=== PATIENT | female | born 1950 | race Caucasian/White ===

== ENCOUNTER 2018-03-22 11:39 | Outpatient (CLI) | payer MEDICARE, SELFPAY ==
[2018-03-22 13:58] LABS: ALT 30 U/L (12-78); AST 24 U/L (15-37); Albumin 3.7 g/dL (3.4-5.0); Alkaline Phosphatase 40 U/L (46-116); Anion Gap 7.9 mmol/L (3-11); BUN 12 mg/dL (7-18); Bilirubin, Total 0.5 mg/dL (0.2-1.0); CO2 29.1 mmol/L (21.0-32.0); CREATININE 0.79 mg/dL (0.55-1.02); Calcium 9.3 mg/dL (8.5-10.1); Chloride 104 mmol/L (98-107); Cholesterol 222 mg/dL (50-200); Glucose 89 mg/dL (70-100); HDL Cholesterol 52 mg/dL (40-60); LDL CHOLESTEROL 155 mg/dL (<100); Potassium 4.7 mmol/L (3.5-5.1); Sodium 141 mmol/L (136-145); Total Protein 6.9 g/dL (6.4-8.2); Triglyceride 85 mg/dL (30-150)
== END 2018-03-22 11:59 ==
PROVIDERS: PCP Family Medicine; Visit Provider Family Medicine
DX: I10 Essential (primary) hypertension (principal)
CPT/HCPCS: 36415; 80053; 80061; 83721

== ENCOUNTER 2019-03-29 01:17 | Outpatient (CLI) | payer MEDICARE, SELFPAY ==
[2019-03-29 08:25] LABS: ALT 24 U/L (14-59); AST 18 U/L (15-37); Albumin 3.6 g/dL (3.4-5.0); Alkaline Phosphatase 40 U/L (46-116); Anion Gap 8.6 mmol/L (3-11); BUN 13 mg/dL (7-18); Bilirubin, Total 0.5 mg/dL (0.2-1.0); CO2 29.4 mmol/L (21.0-32.0); CREATININE 0.81 mg/dL (0.55-1.02); Calcium 9.1 mg/dL (8.5-10.1); Calculated LDL 155 mg/dL; Chloride 105 mmol/L (98-107); Cholesterol 216 mg/dL (<200); Glucose 90 mg/dL (74-106); HDL Cholesterol 46 mg/dL (40-60); Potassium 4.5 mmol/L (3.5-5.1); Sodium 143 mmol/L (136-145); Total Protein 6.8 g/dL (6.4-8.2); Triglyceride 77 mg/dL (<150)
== END 2019-03-29 01:37 ==
PROVIDERS: PCP Family Medicine; Visit Provider Family Medicine
DX: I10 Essential (primary) hypertension (principal)
CPT/HCPCS: 36415; 80053; 80061

== ENCOUNTER 2022-06-19 13:26 | Outpatient (CLI) | payer MEDICARE, SELFPAY ==
[2022-06-19 14:09] LABS: ALT 22 U/L (14-59); AST 16 U/L (15-37); Albumin 3.7 g/dL (3.4-5.0); Alkaline Phosphatase 39 U/L (46-116); BUN 13 mg/dL (7-18); Bilirubin, Total 0.3 mg/dL (0.2-1.0); CREATININE 0.8 mg/dL (0.55-1.02); Calcium 9.3 mg/dL (8.5-10.1); Chloride 102 mmol/L (98-107); Estimated GFR 78.24 (mL/min/1.73m2); Glucose 92 mg/dL (74-106); Sodium 140 mmol/L (136-145); Total Protein 7.2 g/dL (6.4-8.2)
== END 2022-06-19 13:27 | disposition home or self-care (01) ==
LOC: LBO 13:28
PROVIDERS: PCP Family Medicine; Visit Provider Family Medicine
DX: I10 Essential (primary) hypertension (principal)
CPT/HCPCS: 36415; 80053

== ENCOUNTER 2023-07-29 10:24 | Outpatient (CLI) | payer MEDICARE, SELFPAY ==
[2023-07-29 12:29] LABS: ALT 23 U/L (14-59); AST 20 U/L (15-37); Albumin 3.9 g/dL (3.4-5.0); Alkaline Phosphatase 36 U/L (46-116); Anion Gap 10.5 mmol/L (3-11); BUN 13 mg/dL (7-18); Bilirubin, Total 0.6 mg/dL (0.2-1.0); CO2 27.5 mmol/L (21.0-32.0); CREATININE 0.8 mg/dL (0.55-1.02); Calcium 9.8 mg/dL (8.5-10.1); Chloride 105 mmol/L (98-107); Estimated GFR 77.75 (mL/min/1.73m2); Glucose 106 mg/dL (74-106); Sodium 143 mmol/L (136-145); Total Protein 7.4 g/dL (6.4-8.2)
== END 2023-07-29 10:25 | disposition home or self-care (01) ==
LOC: LOS 10:25
PROVIDERS: PCP Family Medicine; Referring Provider Family Medicine; Visit Provider Family Medicine
DX: I10 Essential (primary) hypertension (principal)
CPT/HCPCS: 36415; 80053

== ENCOUNTER 2023-12-22 02:17 | Outpatient (CLI) | payer MEDICARE, SELFPAY ==
--- NOTE | 2023-12-22 06:45 | DI.US_ITS ---
Exam(s) US PELVIS TRANSVAGINAL EXAM: US PELVIS TRANSVAGINAL CLINICAL HISTORY: postmenopausal BLEEDING,N95.0 TECHNIQUE: Transabdominal and transvaginal imaging was performed using standard protocol. COMPARISON: No exams were available for comparison FINDINGS: UTERUS: Anteverted. 5.6 x 1.9 x 3.0 cm Endometrium: Single wall thickness is 1 millimeter. No focal abnormality or heterogeneities. Small amount of fluid within endometrial cavity. Myometrium: Unremarkable. Cervix: Unremarkable. OVARIES: Right: Cyst or mass: None. Left: Cyst or mass: None. DOPPLER: Color: Symmetric and uniform flow to both ovaries. No hyperemia. CUL-DE-SAC: Free fluid: None. IMPRESSION: Small amount of fluid within endometrial cavity. No endometrial thickening or focal endometrial abno rmality is identified. DATA REPOSITORY:
== END 2023-12-22 02:37 ==
LOC: DI 02:17
PROVIDERS: PCP Family Medicine; Visit Provider Obstetrics & Gynecology Gynecology
DX: N95.0 Postmenopausal bleeding (principal)
CPT/HCPCS: 76830; 76856

== ENCOUNTER 2023-12-22 12:15 | Outpatient (CLI) | payer MEDICARE, SELFPAY ==
--- NOTE | 2023-12-22 11:00 | DI.MAMMO_ITS ---
Exam(s) MAMMO SCREENING EXAM: MAMMO SCREENING CLINICAL HISTORY: Z12.39 screening TECHNIQUE: Mammograms were interpreted according to the usual protocol including computer analysis w [employer] CAD system, tomosynthesis and C-view imaging. COMPARISON: 2013 through 2020 FINDINGS: The breasts are composed of scattered fibroglandular densities, Breast Density category B. No suspicious masses or suspicious microcalcifications are seen. No skin thickening or abnormal axillary lymph nodes are seen. There has been no significant change from prior exams. IMPRESSION: BI-RADS Category 1, Negative mammogram Yearly screening mammography is recommended. Breast Density - Category B, scattered fibroglandular densities. A negative radiographic report should not delay biopsy if a dominant or clinically suspicious mass is present. Up to ten percent of cancers are not identified on mammography. A negative report may reinforce clinical impression. Adenosis and dense breasts may obscure an underlying neoplasm. False positive reports average 6 to 10%. Patient will receive a letter notifying them of these results.
== END 2023-12-22 12:35 ==
LOC: DI 12:15
PROVIDERS: PCP Family Medicine; Visit Provider Family Medicine
DX: Z12.31 Encounter for screening mammogram for malignant neoplasm of breast (principal); N95.0 Postmenopausal bleeding
CPT/HCPCS: 77063; 77067

== ENCOUNTER 2024-07-06 01:47 | Outpatient (CLI) | payer MEDICARE, SELFPAY ==
--- NOTE | 2024-07-06 10:30 | DI.RAD_ITS ---
Exam(s) XR LUMBAR SPINE COMPLETE EXAM: XR LUMBAR SPINE COMPLETE CLINICAL HISTORY: low back pain with radiation down leg,leg pain,m54.50,m79.606. TECHNIQUE: 2D digital imaging was performed. COMPARISON: No exams were available for comparison FINDINGS: Five views There is lumbar scoliosis convex right. There is no evidence of compression fracture or listhesis. Some disc space narrowing is noted at L4- 5 none level. There is mild facet joint degenerative changes at the lower 2 levels. Other facets ap pear unremarkable. Sacroiliac joints appear unremarkable. Bone density is age-appropriate. There a re no osseous lesions evident. IMPRESSION: Scoliosis and degenerative disc disease. There is disc space narrowing at L4-5 level. If clinically indicated follow-up MRI can be performed. DATA REPOSITORY: RADIATION DOSE DELIVERED:
== END 2024-07-06 02:07 ==
LOC: DI 01:47
PROVIDERS: PCP Family Medicine; Visit Provider Family Medicine
DX: M41.26 Other idiopathic scoliosis, lumbar region (principal); M51.362 Other intervertebral disc degeneration, lumbar region with discogenic back pain and lower extremity pain
CPT/HCPCS: 72110

== ENCOUNTER 2024-08-18 00:33 | Outpatient (CLI) | payer MEDICARE, SELFPAY ==
--- NOTE | 2024-08-18 06:45 | DI.MRI_ITS ---
Exam(s) MR LUMBAR SPINE WO EXAM: MR LUMBAR SPINE WO CLINICAL HISTORY: LBP and r leg pain despite time, meds, conservative rx,m54.50,m79.604. TECHNIQUE: Multiplanar multisequence MRI of the Lumbar spine was performed. COMPARISON: CR XR LUMBAR SPINE COMPLETE from 07/06/2024 FINDINGS: Conus medullaris is at normal level. There is no evidence of conus mass nor subjacent clumping of in trathecal nerve roots to suggest arachnoiditis. The distal thecal sac appears unremarkable.Are, rodríguez sivakumar, 2 adjacent Tarlov intra sacral cysts associated with the lower most aspect of the thecal sac at the S2 level. These iydj-tl-wbyi Tarlov intra sacral cysts both measure 9 cm wide by 8 cm AP by 1.3 cm craniocaudal. Bones:There are no fractures nor ominous osseous lesions in the lumbar vertebral bodies and visualize d sacrum. There is a prominent benign intraosseous hemangioma in the central and left side of the T1 1 vertebral body. There is a moderate rotoscoliosis convex right, seen on recent plain films With respect to the individual disc space levels... T12-L1: Unremarkable L1-2: Normal disc height and signal. No disc herniation nor central canal stenosis.No foraminal steno sis L2-3: Normal disc height. No disc herniation nor central canal stenosis.No foraminal stenosis.No face t arthropathy. L3-4: There is mild disc space narrowing at this level. Posteriorly there is central-right paracentr al annular bulging which mildly indents the anterior right side of the thecal sac at this level. Lizette tral canal dimensions are lower normal. There is no foraminal stenosis on either side at this level. Minimal if any significant facet arthropathy noted. L4-5: There is asymmetric narrowing of the right-side of the disc space at this level. There is a si gnificant central disc herniation at this level which extends posteriorly 7 mm and is 12 mm wide. Th is subligamentous disc herniation significantly indents the thecal sac resulting in an element of lizette tral canal stenosis. The disc herniation does not extend appreciably into the exiting neural foramin a and there is no significant foraminal stenosis on either side at this level. The facet joints appe ar unremarkable. L5-S1: Normal disc height and signal. There is a smaller central subligamentous disc protrusion at t his level which extends posteriorly 3 mm, is approximately 9 mm wide, and mildly indents the anterior thecal sac at this level. There is no appreciable extension of disc herniation into the exiting dorinda ral foramina and there is no foraminal stenosis on either side at this level. No significant facet a rthropathy. Soft tissues: Incidentally noted on the sagittal images are dilated nerve root sleeves at T10-T11 le beronica which are not included in the field of view on the axial images IMPRESSION: 1. There are central subligamentous disc herniations at L4-5 and L5-S1 levels as described above. Th e disc herniation at the L4-5 level is significantly larger causing significant indentation of the th ecal sac and central canal stenosis. At both levels the disc herniations do not extend appreciably i nto the exiting neural foramina and there is no significant foraminal stenosis on either side at thes e levels. 2. There is minimal facet arthropathy in the lumbar spine. 3. There is a moderate rotoscoliosis convex right, as also seen on recent plain films. There are no fractures nor listhesis nor significant osseous lesions. 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 DATA REPOSITORY:
== END 2024-08-18 00:53 ==
PROVIDERS: PCP Family Medicine; Visit Provider Family Medicine
DX: M51.26 Other intervertebral disc displacement, lumbar region (principal); M79.604 Pain in right leg
CPT/HCPCS: 72148

== ENCOUNTER 2024-08-29 02:44 | Outpatient (CLI) | payer MEDICARE, SELFPAY ==
[2024-08-29 10:27] LABS: ALT 19 U/L (14-59); AST 19 U/L (15-37); Albumin 3.7 g/dL (3.4-5.0); Alkaline Phosphatase 37 U/L (46-116); Anion Gap 6.2 mmol/L (3-11); BUN 15 mg/dL (7-18); Bilirubin, Total 0.6 mg/dL (0.2-1.0); CO2 28.8 mmol/L (21.0-32.0); CREATININE 0.8 mg/dL (0.55-1.02); Calcium 9.3 mg/dL (8.5-10.1); Chloride 103 mmol/L (98-107); Estimated GFR 77.27 (mL/min/1.73m2); Glucose 94 mg/dL (74-106); Potassium 3.7 mmol/L (3.5-5.1); Sodium 138 mmol/L (136-145); Total Protein 7.1 g/dL (6.4-8.2)
[2024-08-30 11:21] LABS: Hepatitis C Ab w Rflx HCV PCR Negative (Negative)
== END 2024-08-29 02:45 | disposition home or self-care (01) ==
LOC: LBO 02:44
PROVIDERS: PCP Family Medicine; Visit Provider Family Medicine
DX: I10 Essential (primary) hypertension (principal); Z11.59 Encounter for screening for other viral diseases
CPT/HCPCS: 36415; 80053; 86803